=== PATIENT | male | born 1955 | race Caucasian/White ===

== ENCOUNTER → 2023-06-08 07:04 | Outpatient (REF) | payer MEDICARE, OTHER, SELFPAY | LOC: PAVMRI 07:04 | PROVIDERS: ATTENDING PHYSICIAN Physician Assistant; FAMILY PHYSICIAN Family Medicine | DX: M25.512 Pain in left shoulder (principal) | CPT/HCPCS: 73221 ==

== ENCOUNTER → 2023-06-20 07:26 | Outpatient (REF) | payer MEDICARE, OTHER, SELFPAY ==
[2023-06-20 09:23] LABS: Hematocrit 46.2 % (39.0-52.0); Hemoglobin 15.8 g/dL (13.0-18.0); Mean Corp Hgb Conc. 34.2 g/dL (33.0-37.0); Mean Corpuscular Hgb 29.5 pg (27.0-31.0); Mean Corpuscular Volume 86.2 fL (80.0-94.0); Mean Platelet Volume 9.7 fL (7.4-10.4); Platelet Count 238 10^3/uL (130-400); Red Blood Cell Count 5.36 10^6/uL (4.70-6.10); Red Cell Dist. Width 13.3 % (11.5-14.5); White Blood Cell Count 9.8 10^3/uL (4.8-10.8)
== END ==
LOC: SDSPAT 07:26
PROVIDERS: ATTENDING PHYSICIAN Orthopaedic Surgery; FAMILY PHYSICIAN Family Medicine
DX: Z01.818 Encounter for other preprocedural examination (principal)
CPT/HCPCS: 36415; 85027; 93005

== ENCOUNTER 2023-07-06 06:41 | Day surgery (SDC) | payer MEDICARE, OTHER, SELFPAY ==
[2023-06-20 07:42] VITALS: BMI 35.4
[2023-07-06] VITALS (10 sets, daily range): BP systolic 112–157; BP diastolic 67–111; BMI 35.4
[2023-07-06] MEDS: NORMOSOL-R 1000 IV (09:51)
[2023-07-06] MEDS: CELEBREX 200 MG PO (09:51)
[2023-07-06] MEDS: TYLENOL 1000 MG PO (09:51)
[2023-07-06] MEDS: TYLENOL 650 MG PO (15:59)
== END 2023-07-06 16:30 | disposition home or self-care (01) ==
LOC: SDS 06:41
PROVIDERS: ATTENDING PHYSICIAN Orthopaedic Surgery
DX: S46.012A Strain of muscle(s) and tendon(s) of the rotator cuff of left shoulder, initial encounter (principal); W19.XXXA Unspecified fall, initial encounter
CPT/HCPCS: 29827; 29828; 29826; C1713

== ENCOUNTER 2023-07-16 10:08 | Emergency (ER) | payer MEDICARE, OTHER, SELFPAY ==
[2023-07-16 10:11] VITALS: BP 174/104
--- NOTE | 2023-07-16 10:34 | ED.GENMED ---
History of Present Illness
General
Chief Complaint: Skin Problem
Time Seen by Provider: 07/16/23 10:22
Travel History
Have you had any contact with someone who has COVID-19?: No
Do you have any symptoms of coronavirus? Fever > 100 degrees, chills, cough, shortness of breath, sore throat, loss of taste or smell, muscle aches, or headache?: No
History of Present Illness
History of Present Illness:
67-year-old male presents to the emergency department for evaluation of persistent bleeding from a small wound to the right louise. He states that he picked a scab when the bleeding began. There appears to be varicosities adjacent to the wound. He
is not on anticoagulants
Review of Systems
Review of Systems
Allergies reviewed?: Yes
All Other Systems: ROS reviewed and negative except as documented in HPI and ROS
Phy Exam
Physical Exam
Physical Exam:
GEN: Well appearing, NAD, WDWN
HEENT: Oral mucosa moist, no scleral icterus
Cardiac: Regular rate
Lung: No respiratory distress, no tachypnea
MSK: No gross deformity or injuries
Skin: Good color, no pallor or jaundice, no rashes. Persistent venous oozing from a small superficial wound to the right anterior lower leg associated with varicose veins
Neuro: AO x3, moves all extremities freely
Psych: Calm, cooperative
Course
Vital Signs
Initial and Last Documented VS:
Initial Vital Signs
Temp Pulse Resp BP Pulse Ox
98.3 F 68 16 174/104 98
07/16/23 10:11 07/16/23 10:11 07/16/23 10:11 07/16/23 10:11 07/16/23 10:11
Last Documented Vital Signs
Temp Pulse Resp BP Pulse Ox
98.3 F 68 16 129/74 98
07/16/23 10:11 07/16/23 10:11 07/16/23 10:11 07/16/23 11:46 07/16/23 10:11
MDM/Problems Addressed
MDM/Problems Addressed:
After infiltration with lidocaine epinephrine the bleeding resolved and topical cyanoacrylate glue was applied for further hemostasis. No need for vein ligation in the ER. Discussed supportive care and return parameters
*Critical Care Note
Total Time (30-74mins, 75-104mins- exclusive of procedures): Not Applicable
ED Attending Note
-
Portions of this chart may have been created with voice recognition software.� Occasional wrong word or��sound alike� substitutions may have occurred due to the inherent limitations of voice recognition software.
Discharge Plan
Departure
Patient Disposition: Home (Routine Discharge)
Date of Disposition: 07/16/23
Time of Disposition: 11:43
Patient with high blood pressure during this ER visit?: No
Discharge Problem:
Bleeding from varicose veins of right lower extremity
Instructions: Wound Care (DC)
Prescriptions:
No Action
famotidine [Pepcid AC] 20 mg Tablet
20 mg PO DAILY PRN (Reason: gerd)
calcium carbonate [Tums] 200 mg calcium (500 mg) Tablet,Chewable
200 mg PO PRN PRN (Reason: gerd)
ibuprofen 200 mg Tablet
400 mg PO Q6H PRN (Reason: pain)
lisinopril-hydrochlorothiazide 20-25 mg Tablet
1 tab PO DAILY
rosuvastatin 10 mg Tablet
10 mg PO QPM
Referrals:
Nils Black MD [Family Provider] -
Activity Restrictions/Additional Instructions:
Keep dry for the next 4-6 hours
Do not scrub the area with soap and water however letting water run over the wound is OK
Glue will dissolve in 5-6 days
Interventions
Interventions:
*Risk Screen - Suicide Last Done: 07/16/23 10:27
*Neglect/Abuse Screening Last Done: 07/16/23 10:27
*ED COVID-19 Vaccine History Last Done: 07/16/23 10:11
*Nursing Disposition Last Done: 07/16/23 11:59
ED-Skin Assessment Last Done: 07/16/23 10:26
Discharge Date and Time
Discharge Date/Time: 07/16/23 11:59
Print Language: [id number]
[2023-07-16 11:46] VITALS: BP 129/74
== END 2023-07-16 11:59 | disposition home or self-care (01) ==
LOC: EMR 10:08
PROVIDERS: EMERGENCY PHYSICIAN Emergency Medicine; FAMILY PHYSICIAN Family Medicine
DX: I83.891 Varicose veins of right lower extremity with other complications (principal)
CPT/HCPCS: 99283

== ENCOUNTER → 2023-10-29 10:53 | Outpatient (REF) | payer MEDICARE, OTHER, SELFPAY | LOC: RAD 10:53 | PROVIDERS: ATTENDING PHYSICIAN Physician Assistant | DX: M25.562 Pain in left knee (principal) | CPT/HCPCS: 73564 ==